=== PATIENT | female | born 1955 | race Caucasian/White ===

== ENCOUNTER 2018-07-27 06:24 | Day surgery (SDC) | payer OTHER, SELFPAY ==
[2018-07-27] VITALS (8 sets, daily range): BP systolic 98–116; BP diastolic 66–77; PULSE 56–65; RESP 16–18; TEMP 36.3–36.9; O2SAT 91–95; BMI 29.5
--- NOTE | 2018-07-27 | BLA_PTH ---
PATIENT: MACY ABAD LOC: [facility] [place] U#:[id number] AGE/SX: 63/F ROOM: RE07/27/[address]: Dr. Jessica Hickey MD : [id number] BED: DIS: 07/27/2018 SPEC #: [id number] RECD: 07/27/18 10:37 STATUS: BLACK REDesmond #: [id number] ALICE: 07/27/18 00:[address]: Jessica Hickey DEPT: SURGICAL PATHOLOGY RECD BY: Chace Do ENTERED: 07/27/18 11:38 SP TYPE: BLADDER BX OTHR DR: Out of Town Doctor Tissues: Urinary bladder, NOS Procedures: Surgery Specimen Level IV HEADER OPERATION: Cysto, bladder biopsy, fulguration PRE-OP DIAGNOSIS: Urgency, urge incontinence, bladder neoplasm of uncertain behavior TISSUE SUBMITTED: Bladder biopsy MICROSCOPIC DIAGNOSIS Urinary bladder, biopsy: Mild chronic cystitis. Reactive urothelium. No evidence of malignancy. Detrusor muscle fragments are present in the biopsy. AM:yonis 07/28/18 COMMENT Case has been reviewed in consultation with Dr. Winters who concurs with the above diagnosis. IDC:MULUGETA MICROSCOPIC DESCRIPTION Slides are reviewed. GROSS DESCRIPTION Received in fixative is one container labeled with the patient's name and designated bladder biopsy. The specimen consists of three irregular fragments of dumont soft tissue that in aggregate measure 1 x 0.2 x 0.1 cm. The specimen is totally submitted in one cassette. / MULUGETA:yonis 07/27/18 TC:3 CPT: 44501
--- NOTE | 2018-07-27 06:37 | EKG12_ITS ---
Test Reason : PRE OP Blood Pressure : / mmHG Vent. Rate : 063 BPM Atrial Rate : 063 BPM P-R Int : 166 ms QRS Dur : 136 ms QT Int : 438 ms P-R-T Axes : 048 -45 109 degrees QTc Int : 448 ms Normal sinus rhythm Left axis deviation Left bundle branch block Abnormal ECG No previous ECGs available Confirmed by ALEXIA CONROY, NICOLE ([id number]), newspaper editor managing GUY BALDWIN ([id number]) on 08/02/2018 5:35:39 PM Referred By: Jessica Hickey Confirmed By:NICOLE HALE MD
[2018-07-27 07:44] LABS: Hematocrit 39.4 % (37-47); Hemoglobin 13.8 g/dl (12.0-15.0); Mean Corpuscular Hgb 31.4 pg (27.0-32.0); Mean Corpuscular Volume 89.5 fL (81-99); Mean Platelet Vol. 10.2 fl (6.2-12.0); Platelet Count 309 K/mm3 (150-450); RBC Distribution Width CV 12.8 % (11.6-14.6); RBC Distribution Width SD 41.1 fl (35.1-43.9); Scan Indicated on CBC? Y/N NO; White Blood Count 6.3 K/mm3 (4.4-11.0)
--- NOTE | 2018-07-27 07:47 | PCM.OPRPT ---
Problem List (1) Neoplasm of uncertain behavior of bladder Status: Acute (2) Urgency of urination Status: Acute (3) Urgency incontinence Status: Acute (4) Urinary tract infection Status: Chronic Report of Operation Date of Procedure: 07/27/18 Pre-Operative Diagnosis: neoplasm uncertain behavior bladder, urgency, urge incontinence Post-Operative Diagnosis: same Surgery/Procedure Performed:: cystoscopy, bladder biopsy and fulguration Description of Surgical Findings:: posterior bladder wall superficial mucosal are with increased vascularity. No papillary lesion. Did not have to dilate urethra today. Type of Anesthesia:: MAC Specimen's removed: bladder biopsy Estimated Blood Loss (mL): 2cc Description of Procedure: The patient is a 63-year-old woman with a history of recurrent urinary tract infection, urgency and urge incontinence. She underwent cystoscopy in the office and was identified as having a posterior bladder wall 1.5 cm diameter area of increased vascularity compared to the surrounding tissues. After discussing the risk benefits and alternatives, she agreed to proceed with surgical intervention with biopsy and fulguration. She was taken to the operating room and placed on the operating room table. Anesthesia monitored the head, neck, airway, IV access and vital signs throughout the case. Once anesthesia was appropriately administered the patient was placed into dorsal lithotomy position was prepped and draped in usual sterile fashion. A cystourethroscopy was performed and only the lesion identified was seen. Three biopsies of this mucosa were taken and the area was fulgurated for treatment and hemostatic control. The patient's bladder was then emptied and she was awakened and taken to the recovery room in good condition. There were no complications during this procedure. Grafts/Implants Used: none - Complications none - Admit VTE Documentation VTE Present on Admission: Yes VTE Mechan Device Prophylaxis: SCD's VTE Pharm Prophylaxis ordered?: No Reason prophylaxis not ordered:: Treatment Not Indicated
--- NOTE | 2018-07-27 07:50 | DCINST_ITS ---
Discharge Diet: No Restrictions Discharge Activity: Return to Normal Activity, May not drive while taking narcotic pain medications. Call your doctor if you observe: Fever of 101 or Higher, Inability to urinate, Shortness of breath, Chest pain, Calf discomfort, Uncontrolled pain Allergies/Adverse Reactions: Allergies No Known Allergies Allergy (Verified 07/19/18 14:33) Medications to take at Discharge Alendronate Sodium [Fosamax] 70 mg PO ROMAN 07/19/18 Calcium Citrate/Vitamin D3 [Citracal-Vit D3 200 mg-250 Tab] 1 each PO DAILY 07/19/18 Cephalexin [Keflex] 250 mg PO DAILY 07/19/18 Cholecalciferol (VIT D3) [Vitamin D] 1,000 unit PO DAILY 07/19/18 Multivit with Calcium,Iron,Min [Multiple Vitamins For Women] 1 each PO DAILY 07/19/18 [place]-3 Fatty Acids/Fish Oil [Fish Oil 1,000 mg Capsule] 1 each PO DAILY 07/19/18 Simvastatin [Zocor] 20 mg PO QHS 07/19/18 Primary Care Physician: Dulce Alejo,Out of [Primary Care Provider] - Test Results: Test results from this visit will be discussed in further detail at your follow- up appointment, if applicable. Please Follow Up With: Jessica Hickey MD When: call office for appt. to be seen in 2 weeks Proposed Discharge Date: 07/27/18
[2018-07-27] MEDS: Cefazolin 2 GM in 0.9% Normal Saline 100 ML IV (08:00)
== END 2018-07-27 10:09 | disposition home or self-care (01) ==
LOC: SDC 06:26 → AC 06:27
PROVIDERS: Anesthesiology; Referring Provider Urology; Visit Provider Urology
PROC: 0TBB8ZX Excision of Bladder, Via Natural or Artificial Opening Endoscopic, Diagnostic (ICD-10-PCS; CPT 52234; principal; 2018-07-27 07:50)
DX: N30.20 Other chronic cystitis without hematuria (principal); N39.46 Mixed incontinence; R39.15 Urgency of urination; N95.2 Postmenopausal atrophic vaginitis; N35.92 Unspecified urethral stricture, female; R35.1 Nocturia; E78.00 Pure hypercholesterolemia, unspecified; Z78.0 Asymptomatic menopausal state; Z79.899 Other long term (current) drug therapy; Z87.440 Personal history of urinary (tract) infections
CPT/HCPCS: 00912; 52234; 36415; 85027; 88305; 93005; J7120